=== PATIENT | male | born 1990 | race Two or more races ===

== ENCOUNTER 2024-06-21 07:00 | Inpatient (IN) | payer OTHER ==
[~2024-06-21] VITALS: Ht 170.2 cm; Wt 77.1 kg
[2024-06-21 10:08] LABS: HEMATOCRIT 48.7 % (39.0-48.0); HEMOGLOBIN 16.5 g/dL (13-16.00); MEAN CORPUSCULAR HEMOGLOBIN 29.5 pg (27.00-32.0); MEAN CORPUSCULAR HGB CONC 33.9 g/dl (32.0-36.0); PLATELET COUNT 228 K/uL (150-450); RED CELL DISTRIBUTION WIDTH 13.2 % (11.5-14.5)
[2024-06-21] MEDS ORDERED: 0.9 % SODIUM CHLORIDE 1,000 ML IV SCH (10:15)
[2024-06-21] MEDS ORDERED: FAMOTIDINE/PF 20 MG/2 ML VIAL IV ONE (10:15)
[2024-06-21 10:54] LABS: PH,URINE 6.5 (5.0-8.0); URINE APPEARANCE Clear; URINE BILIRRUBIN Negative (NEGATIVE); URINE BLOOD Negative; URINE COLOR Yellow; URINE GLUCOSE Negative (NEGATIVE); URINE LEUKOCYTE Negative; URINE NITRATE Negative; URINE PROTEIN Negative (NEGATIVE)
[2024-06-21 11:02] LABS: URINE EPITHELIAL CELLS 4.4 uL (0.0-38.8); URINE RBC 5.4 uL (0.0-20.8); URINE WBC 12.8 uL (0.0-23.2)
[2024-06-21 11:05] LABS: URINE BACTERIA 3.6 uL (0.0-1933); URINE KETONE 40 (NEGATIVE)
[2024-06-21 11:07] LABS: BILIRUBIN TOTAL 0.97 mg/dL (0.3-1.2); CALCIUM 9.2 mg/dL (8.5-10.1); CREATININE SERUM 0.95 mg/dL (0.70-1.30); GFR 92.47; GLOBULINA 3.9 G/DL (2.4-3.5); POTASSIUM 4.33 mEq/L (3.5-5.1); TOTAL PROTEIN 7.9 gm/dL (6.4-8.2)
[2024-06-21] MEDS ORDERED: PIPERACILLIN/TAZOBACTAM SODIUM 3.375 GM VIAL IV ONE (15:15)
[2024-06-21] MEDS ORDERED: ACETAMINOPHEN 500 MG GEL..CAP PO PRN (19:45)
[2024-06-21] MEDS ORDERED: KETOROLAC TROMETHAMINE 30 MG VIAL IU PRN (20:00)
[2024-06-21] MEDS ORDERED: ONDANSETRON HCL 4 MG in 0.9 % SODIUM CHLORIDE 50 ML IV PRN (20:00)
[2024-06-21] MEDS ORDERED: FAMOTIDINE/PF 20 MG/2 ML VIAL IV SCH (21:00)
[2024-06-21 21:50] VITALS: BP 103/64; O2SAT 99
[2024-06-22] MEDS ORDERED: PIPERACILLIN/TAZOBACTAM SODIUM 3.375 GM in DEXTROSE 5 % IN WATER 100 ML IV SCH
[2024-06-22 00:21] VITALS: BP 106/65; O2SAT 98
[2024-06-22 08:00] VITALS: BP 96/59; O2SAT 98
[2024-06-22 08:05] LABS: INR 1.04; PARTIAL THROMBOPLASTIN TIME 33.3 SECONDS (22.0-34.0); PROTHROMBIN TIME 11.3 SECONDS (9.0-11.5)
[2024-06-22] MEDS ORDERED: MORPHINE SULFATE 4 MG/ML VIAL IV ONE ×2 (10:40→23:10)
[2024-06-22 17:08] VITALS: BP 110/67; O2SAT 97
[2024-06-22] MEDS ORDERED: BUPIVACAINE HCL 30 ML VIAL IJ ONE (22:00)
[2024-06-22] MEDS ORDERED: LIDOCAINE HCL 1%/EPINEPHRINE 20ML VIAL IJ ONE (22:00)
[2024-06-22] MEDS ORDERED: ISOPROPYL ALCOHOL 30 ML OUNCE TOP ONE (22:00)
[2024-06-22] MEDS ORDERED: 0.9 % SODIUM CHLORIDE 1,000 ML IV SCH (22:45)
[2024-06-23 01:53] VITALS: BP 106/65; O2SAT 97
[2024-06-23 06:52] LABS: HEMATOCRIT 42.2 % (39.0-48.0); HEMOGLOBIN 14.5 g/dL (13-16.00); MEAN CELL VOLUME 86.4 fL (80.0-100.00); MEAN CORPUSCULAR HEMOGLOBIN 29.7 pg (27.00-32.0); MEAN CORPUSCULAR HGB CONC 34.4 g/dl (32.0-36.0); PLATELET COUNT 226 K/uL (150-450); RED BLOOD COUNT 4.89 M/uL (4.00-6.00)
[2024-06-23 07:41] LABS: CALCIUM 8.2 mg/dL (8.5-10.1); CREATININE SERUM 0.8 mg/dL (0.70-1.30); GFR 112.75
[2024-06-23 08:00] VITALS: BP 120/75; O2SAT 97
== END 2024-06-23 17:20 | disposition home or self-care (01) | DRG 399 ==
LOC: ER 07:00 → SURH 20:03
PROVIDERS: Emergency Medicine; General Practice; Surgery; ADMIT Internal Medicine; ATTEND Internal Medicine
PROC: BW21YZZ Computerized Tomography (CT Scan) of Abdomen and Pelvis using Other Contrast (ICD-10-PCS; 2024-06-21)
PROC: 0WQF4ZZ Repair Abdominal Wall, Percutaneous Endoscopic Approach (ICD-10-PCS; 2024-06-22)
PROC: 0DTJ4ZZ Resection of Appendix, Percutaneous Endoscopic Approach (ICD-10-PCS; principal; 2024-06-22 20:00)
DX: K35.80 Unspecified acute appendicitis (principal); K43.9 Ventral hernia without obstruction or gangrene